=== PATIENT | female | born 1985 | race Caucasian/White ===

== ENCOUNTER → 2020-07-18 02:23 | Outpatient (CLI) | payer BC, SELFPAY ==
[2020-07-18 18:21] LABS: SARS-CoV-2 RNA PCR Negative
== END ==
PROVIDERS: Visit Provider Orthopaedic Surgery
DX: Z01.812 Encounter for preprocedural laboratory examination (principal); Z20.822 Contact with and (suspected) exposure to COVID-19
CPT/HCPCS: C9803; U0003; U0005

== ENCOUNTER 2020-07-21 01:13 | Day surgery (SDC) | payer BC, SELFPAY ==
[2020-07-15 14:36] VITALS: BMI 24.2
--- NOTE | 2020-07-20 12:11 | WPDANESEPPF ---
Anes - Initial Pre Proc Eval Procedure: Operation Date: 07/21/20 09:30 Proposed Procedures p Open Reduction Internal Fixation Left Ankle Fracture - Jose Yang MD Date/Time: 07/20/20 12:11 Surgeon: Jose Yang MD Pre Op Diagnosis: Left Ankle Fracture Patient Data Age: 35 Gender: F Height: 1.68 m Weight: 68.05 kg Allergies Allergy/AdvReac Type Severity Reaction Status Date / Time No Known Allergies Allergy Verified 07/21/20 08:08 Home Medications Medication Instructions Recorded Confirmed Type hydrocodone 5 mg-acetaminophen 325 1 tablet PO Q6H PRN #30 tablet 07/20/20 07/21/20 Rx mg tablet ondansetron 8 mg disintegrating 8 mg PO Q6-8H PRN #10 tablet 07/20/20 07/21/20 Rx tablet oxycodone 5 mg capsule 5 mg PO Q6H PRN #20 tablet 07/20/20 07/21/20 Rx Patient hx anesthesia problems: none Family hx anesthesia problems: none PMFSH Past Medical History Medical History (Updated 07/15/20 @ 10:54 by Jose Yang MD) Fracture of ankle, trimalleolar, left, closed Social History Social History (Updated 07/15/20 @ 14:21 by Heavenly Sharp, RT(R)) Smoking packs per day: 0.5 Smoking cigarettes per day: 10.0 Years smoked: 2 Smoking pack-years: 1.00 Smoking status: Former smoker Tobacco type: cigarettes Alcohol intake: current Drinks per week: 3 Substance use: never Substance use type: does not use Living arrangements: with family Gender identity (if verbalized by the patient): Female Spiritual care concerns: No Anes - Eval Final PreProcedure Day of Procedure 07/20/20 12:11 Patient weight: normal Heart: regular rate and rhythm Lungs: clear to auscultation and normal air movement Airway: Mallampati scale class II Neurological: alert and oriented Last oral intake: >/= 8 hours ASA classification: I Emergent: no Anesthetic plan: proceed Anesthesia type and monitoring: general LMA Informed Consent: The patient's anesthetic plan and its attendant risks and benefits were discussed with the patient/family/POA. Questions were solicited and answers provided to the satisfaction of the patient/family/POA.
[2020-07-21] VITALS (8 sets, daily range): BP systolic 97–121; BP diastolic 58–68; PULSE 70–83; RESP 12–18; TEMP 36.6; O2SAT 96–100
--- NOTE | ~2020-07-21 | XR_ITS ---
EXAMINATION: XR surgery orthopedic EXAM DATE: 07/21/2020 12:07 INDICATION: Left ankle ORIF. TECHNIQUE: Fluoroscopy used during left ankle ORIF performed by Dr. Jose Yang MD. The DAP f or this procedure was 0.05 mGym2. FINDINGS: There is a fibular plate with supporting screws including one bridging the syndesmosis. Th is crosses a distal fibular fracture which is identified. There is a screw extending from the anterio r to the posterior aspect of the left tibial plafond and, through possible posterior malleolar fractu re (correlation with preprocedure films recommended) couple of orthopedic wires at the medial malleol us. Correlate with procedure note. IMPRESSION: Fluoroscopy used during left ankle ORIF. Reviewed, dictated and finalized at location A. [facility]
--- NOTE | 2020-07-21 07:14 | WPDHPUPDATE1 ---
History and Physical Update Update Date/Time: 07/21/20 07:14 History and Physical has been reviewed, including an updated exam of the patient. There are NO changes in the patient's condition. Covid test negative. Risks, benefits, and alternatives have been discussed and questions answered. Patient agrees to proceed with procedure.
[2020-07-21] MEDS: ACETAMINOPHEN 500 MG TABLET 1000 MG PO (08:07)
[2020-07-21] MEDS: LACTATED RINGERS 1,000 ML 30 ML IV CONT ×2 (08:31→12:36)
[2020-07-21] MEDS: KETOROLAC 15 MG/ML VIAL (*BKC) IV PUSH (08:32)
--- NOTE | 2020-07-21 09:08 | WPDANESPNB ---
Anes - Peripheral Nerve Block Date/Time: 07/21/20 09:08 I have discussed with the patient/family/POA the placement of a peripheral nerve block for post-operative pain management, including associated risks, benefits, complications, and side effects. Alternative methods of post-operative analgesia were detailed. Questions were solicited and answers provided to the satisfaction of the patient/family/POA. Time-Out: A pre-procedural Time-Out was completed immediately before starting the procedure and confirmed: Patient Identification, Site, Procedure, Patient Position and the Availability of Requisite Equipment. Clinical Indications: Acute post-operative pain management requested by the operative surgeon. Nerve Block Insertion Note Anes-nerve block: posterior fossa sciatic (20cc) left and adductor canal (10cc) left Patient position: supine Skin prep: chlorhexidine Needle: 22 gauge, stimulating, insulated echogenic needle. Needle length: 80 mm Technique: ultrasound (in plane) Injectate: bupivacaine 0.5% with epi 5 mcg/ml (20cc) Observations: tolerated well Complications: none Procedure start time:: 935 Procedure end time:: 940
[2020-07-21] MEDS: ceFAZolin 2 GM/D5W 50 ML 2 GM/50 ML BAG IVPB (09:44)
--- NOTE | 2020-07-21 09:47 | PM.PROC ---
Procedure Note - Detailed Date of procedure: 07/21/20 Pre-op diagnosis: Left Ankle Fracture Post-op diagnosis: same Procedure performed: Open reduction internal fixation of left ankle trimalleolar fracture including posterior malleolus. Description of procedure: Operative indications: Patient is a 35 year-old woman who sustained an injury to the Left ankle. Radiographs show distal fibular fracture with displacement, posterior malleolus fracture with displacement and posterior subluxation of the ankle mortise. Medial malleolus fracture with displacement. Widening of the ankle mortise noted consistent with medial injury. Patient presents for operative treatment. She previously underwent a close reduction and splinting 1 week ago. Full discussion of the risks, benefits and alternatives of surgery was had with the patient. Questions answered. Patient verbalizes understanding and wishes to proceed. What was done: After informed consent, the operative extremity was marked in the preoperative holding area. Patient received intravenous antibiotics. Patient was then taken to the operating room and underwent general anesthesia by the anesthesia team. They were positioned supine on the operating room table. A time-out was performed confirming the patient, site of the surgery, operative plan. Left Lower extremity then prepped and draped in the usual sterile surgical fashion using ChloraPrep skin solution. Foot and ankle exsanguinated and a thigh tourniquet inflated to 250 mmHg. Longitudinal incision made over the lateral ankle distal fibula with a 15 blade knife. Hemostasis controlled with electrocautery. Full-thickness soft tissue flaps developed and the fascia was incised in line with the skin incision. Fracture identified and cleared with a dental pick, irrigation and rongeur. Noted to be extensive soft tissue stripping from the fibula as well as the anterior and posterior portions of the visualized ankle joint. The distal fracture fragment was retracted posteriorly in the lateral portion of the ankle joint could be visualized. Debris was cleared from this and thorough irrigation done and suctioned. Mcalister elevator was able to be placed into the posterior malleolus fracture which allowed the fracture to be immobilized. Posterior malleolus piece reduced into position and held with a bone-holding clamp. Fixation achieved with 4.0 mm partially-threaded cannulated screws. Good fixation noted. Screws were placed from anterior to posterior through stab incision at the anterior aspect using fluoroscopy for guidance. Anterior incisions made with 15 blade knife and blunt dissection of the soft tissue down to the anterior tibia. Soft tissue protectors were placed. The wounds were then thoroughly irrigated and closed with 4 O nylon interrupted suture. The lateral malleolus was then addressed. Fracture reduced and held with bone-holding clamp. Image intensification confirmed reduction of the fracture and the ankle mortise. Fixation achieved with Neutralization type fixation with a lateral plate with unicortical screws distal to fracture and bicortical screws proximal to the fracture. Good alignment and stability of the fracture noted. Image intensification used to confirm reduction of the fracture and placement of the hardware. Stress of the ankle performed with good stability of the ankle mortise in all directions. Wound thoroughly irrigated with antibiotic solution. Tourniquet released and bleeding points coagulated. Fascia repaired with 00 Vicryl interrupted suture. Subcutaneous tissue repaired with 000 Monocryl interrupted suture and 0000 nylon interrupted suture. Medial side then addressed. Longitudinal incision made with 15 blade knife using a minimal touch technique for the skin. Fascia incised in line with skin incision. Soft tissue elevated in the medial fracture identified and reduced. This was not fracture pattern more of a vertical orientation over the medial an
[2020-07-21] MEDS: BUPIVACAINE HCL 0.5% PF 30 ML VIAL INFILTRATE (12:17)
--- NOTE | 2020-07-21 12:53 | SUR.PHASEI ---
REPORT GIVEN TO JOSE LUIS GUTIERREZ RN
== END 2020-07-21 14:10 | disposition home or self-care (01) ==
PROVIDERS: Visit Provider Orthopaedic Surgery
PROC: (CPT 27823; principal; 2020-07-21 09:30)
DX: S82.852A Displaced trimalleolar fracture of left lower leg, initial encounter for closed fracture (principal); G89.18 Other acute postprocedural pain; Z87.891 Personal history of nicotine dependence; W10.9XXA Fall (on) (from) unspecified stairs and steps, initial encounter
CPT/HCPCS: 27823; 64447; 64445; A9270; C1713; C1769; J0690; J1100; J1885; J2250; J2370; J2405; J2704; J3010; J7120